=== PATIENT | male | born 1955 | race American Indian/Alaskan Native ===

== ENCOUNTER 2019-05-02 04:45 | Emergency (ER) | payer SELFPAY ==
[2019-05-02 04:55] VITALS: BP 185/81
--- NOTE | 2019-05-02 08:04 | Emergency Department Report ---
Chief Complaint: Extremity Problem,Nontraumatic Stated Complaint: CHECK SUGAR/NEUROPATHY Time Seen by Provider: 05/02/19 07:15 - HPI History of Present Illness: 64-year-old male states that he is a diabetic and he is requesting his blood sugar to be checked because of the numbness and tingling to his hands and feet. He denies chest pain he denies shortness of breath he denies fever or cough no urinary urgency or frequency he has no other complaints - ROS Review of Systems: All systems are reviewed and are negative. Patient denies chest pain shortness of breath, nausea, vomiting, diarrhea,abdominal pain, his only complaint is of numbness and tingling to his hands and feet which is chronic. - Exam Vital Signs: Vital Signs 05/02/19 04:54 Temperature 97.8 F Pulse Rate 77 Respiratory 18 Rate Blood Pressure 185/81 O2 Sat by Pulse 100 Oximetry Physical Exam: Patient's awake alert and oriented. Respirations are easy and unlabored skin warm dry and intact he does have some dark spots on his right lower extremities. They are clean and dry no erythema no drainage non-tender. Patient states states that those lesions have been on his legs for a long time. Lungs are clear S1-S2 regular no murmurs appreciated No peripheral edema Nontoxic and well-appearing MSE screening note: Focused history and physical exam performed. Due to findings the following was ordered: ED Medical Decision Making - Medical Decision Making Physical 64-year-old male who presented to the emergency room with complaint of pins and needles sensation to his hands and feet. He is a known diabetic. His blood sugar is 177. Patient has no other complaint the diabetic neuropathy has been part of his diagnosis. Patient is instructed to continue taking his diabetic medication as prescribed and to follow-up with his doctor. He states he is new to this area patient given referral to [facility] and to Dr. Dae Euceda. ED Disposition for MSE Clinical Impression: Pins and needles sensation Disposition: Z- MED SCREENING EXAM-LEFT Is pt being admited?: No Does the pt Need Aspirin: No Condition: Stable Instructions: Diabetic Neuropathy (ED), Diabetes Mellitus Type 2 in Adults (ED) Additional Instructions: Follow up with your Primary care doctor or [facility] or Dr. Sellers. Continue to take your medications as prescribed to you. Referrals: PRIMARY CARE, [Primary Care Provider] - 3-5 Days DAE SELLERS MD [Staff Physician] - 3-5 Days Time of Disposition: 08:06
== END 2019-05-02 08:15 | disposition left against medical advice (07) ==
LOC: ED 04:45
DX: R20.2 Paresthesia of skin (principal)
CPT/HCPCS: 82962; 99282